=== PATIENT | male | born 1965 | race Caucasian/White ===

== ENCOUNTER 2024-05-16 12:55 | Inpatient (IN) | payer BC, SELFPAY ==
[2024-05-16] VITALS (11 sets, daily range): BP systolic 128–149; BP diastolic 79–91; PULSE 67–89; RESP 16–20; TEMP 36.7–37.1; O2SAT 93–97; BMI 21.6; BMI 21.0
--- NOTE | 2024-05-16 | CRLHL7_ITS ---
For Patients: As a result of the Century Cures Act, medical imaging exams and procedure reports are released immediately into your electronic medical record. You may view this report before your referring provider. If you have questions, please contact your health care provider. INDICATION: RIGHT SIDED WEAKNESS. CODE STROKE TECHNIQUE: CT of the head was performed without IV contrast. COMPARISON: None. FINDINGS: Parenchyma: No acute hemorrhage, infarction, or mass. Moderate confluent periventricular white matter hypoattenuation is nonspecific and is favored to represent chronic small vessel ischemic disease. Ventricles and extra-axial spaces: Mild involutional changes. Visualized paranasal sinuses: Moderate mucosal thickening of the bilateral ethmoid and maxillary sinuses. Mastoid air cells: Clear. Bones: No focal abnormality. Additional comment: None. IMPRESSION: No acute hemorrhage or large territory infarct. Findings discussed with Dr. Johnson At 1:29 p.m. on 05/16/2024. Please note that all CT scans at this facility use dose modulation, iterative reconstruction, and/or weight-based dosing when appropriate to reduce radiation dose to as low as reasonably achievable. Dictated by Ruperto Ramon MD @ 05/16/2024 1:29:50 PM (Electronically Signed)
--- NOTE | 2024-05-16 13:10 | ED.GENADULT ---
HPI - General Adult General Chief complaint: Neuro Symptoms/Altered Deficit Stated complaint: dizziness/numbness Time Seen by Provider: 05/16/24 13:04 History of Present Illness HPI narrative: This 58-year-old male comes in reporting feeling off balance since awakening at 6:00 a.m. this morning. He also states that he has right-sided weakness. He reports some difficulty ambulating. He does have diabetes and smokes tobacco. He arrives here with blood sugar at 173 for glucometer spot check. He does not report a headache. He is not on any anticoagulants. Related Data Home Medications ?Medication ?Instructions ?Recorded ?Confirmed glimepiride 3 mg tablet 6 mg PO DAILY 05/16/24 05/16/24 metformin 1,000 mg tablet 1,000 mg PO DAILY 05/16/24 05/16/24 Allergies Allergy/AdvReac Type Severity Reaction Status Date / Time No Known Drug Allergies Allergy Verified 05/16/24 12:59 Review of Systems Status of ROS: Reports: 10 or more systems reviewed and unremarkable except as noted in History and below Narrative: Constitutional: No fevers, no weight gain or loss. Eyes: No discharge. No vision changes. HENT: No congestion, no sore throat, no ear pain. Cardiovascular: No chest pain, no palpitations. Respiratory: No shortness of breath, no wheezes, no cough. Gastrointestinal: No abdominal pain, no vomiting, no diarrhea. Genitourinary: No dysuria, no hematuria. Musculoskeletal: Normal range of motion. Skin: No rashes, no pruritis. Neurological: He reports the dizziness that he clarifies as off balance. Some right-sided weakness especially in the right upper extremity. Endo/Heme/Allergies: No bruising or bleeding. No polydipsia. Pysch: no suicidality, no anxiety, no insomnia. All other systems reviewed and are negative. PFSH PFSH Social History Smoking Status: Current every day smoker What tobacco products do you use: cigarettes Smoking packs per day: 2 Smoking cigarettes per day: 40.0 How often do you have a drink containing alcohol: 2-3 times a week AUDIT-C Alcohol total score: 3 Non-prescribed substance use: denies use Exam Narrative: Exam Narrative: Constitutional: Well-developed, well-nourished, no acute distress. HEENT: Normocephalic, atraumatic. Neck: Normal range of motion. Nontender. Supple. Heart: Regular. No murmurs. Normal rate. Intact distal pulses. Lungs: Clear to auscultation. No chest discomfort. No wheezes, rhonchi, or rales. Abdomen: Normal bowel sounds. Nontender. No rebound tenderness. Genitalia: Deferred. Back: No midline tenderness. Normal range of motion. Extremities: Normal range of motion. No injury. Skin: Intact. No rash. Warm. No erythema or pallor. Neurologic: No altered sensation. Alert and oriented. No facial asymmetry. Tongue is midline. No pronator drift. 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 Able to raise each leg from the bed. He has trouble using his right hand to do [id number] test but can do so normally with his left hand. Psychiatric: No suicidality. No anxiety or depression. No insomnia. Nursing notes and vitals signs are reviewed. Const: Vital Signs, click to edit/add: Vital Signs - 24 hr 05/16/24 13:17 05/16/24 14:06 05/16/24 14:16 Temperature 98.0 F Pulse Rate 82 Pulse Rate [Pulse Oximeter] 86 Respiratory Rate 16 16 20 Blood Pressure 142/91 H 147/79 H Blood Pressure [Ri ght Upper Arm] 149/83 H Pulse Oximetry 96 96 Oxygen Delivery Me thod Room Air Room Air Room Air 05/16/24 14:31 05/16/24 14:47 Temperature Pulse Rate 71 Pulse Rate [Pulse Oximeter] Respiratory Rate 16 20 Blood Pressure 148/86 H 143/83 H Blood Pressure [Ri ght Upper Arm] Pulse Oximetry 97 97 Oxygen Delivery Me thod Room Air Course Vital Signs Vital signs: Initial Vital Signs Temperature 98.0 F 05/16/24 13:17 Temperature Source Temporal Artery Scan 05/16/24 13:17 Pulse Rate 86 05/16/24 13:17 Pulse Rhythm Regular 05/16/24 13:17 Pulse Strength 3+ Normal 05/16/24 13:17 Respiratory Rate 16 05/16/24 13:17 Blood Pressure 149/83 H 05/16/24 13:17 Blood Pressure Mean 105 05/16/24 13:17 Blood Pressure Position Sitting 05/16/24 13:17 Pulse Oximetry 96 05/16/24 13:17 Oxygen Delivery Method Room Air 05/16/24 13:17 Vital Signs Temperature 98.0 F 05/16/24 13:17 Pulse Rate 86 05/16/24 13:17 Respiratory Rate 16 05/16/24 13:17 Blood Pressure 149/83 H 05/16/24 13:17 Pulse Oximetry 96 05/16/24 13:17 Oxygen Delivery Method Room Air 05/16/24 13:17 Temperature 98.0 F 05/16/24 13:17 Pulse Rate 71 05/16/24 14:47 Respiratory Rate 20 05/16/24 14:47 Blood Pressure 143/83 H 05/16/24 14:47 Pulse Oximetry 97 05/16/24 14:47 Oxygen Delivery Method Room Air 05/16/24 14:31 Medications Administered Medications: Discontinued Medications Generic Name Dose Route Start Last Admin Trade Name Zahra PRN Reason Stop Dose Admin Aspirin 324 mg 05/16/24 14:21 05/16/24 14:29 Aspirin 81 Mg Tab.Chew PO 05/16/24 14:22 324 mg ONCE ONE Administration Clopidogrel Bisulfate 75 mg 05/16/24 14:21 05/16/24 14:30 Clopidogrel 75 Mg Tablet PO 05/16/24 14:22 75 mg ONCE ONE Administration Medical Decision Making MDM Narrative Medical decision making narrative: This patient comes in reporting off-balance and right upper extremity dysfunction upon awakening this morning at 6:00 a.m.. His last known well was last evening prior to going to bed. He does have risk factors for stroke including diabetes and smoking. His neurologic exam was normal except for [id number] was difficulty in using his right hand. A stroke code was called soon after the patient arrived and I was able to get in to see him immediately. He had a CT scan and CT angiogram of his head and neck followed by MRI of his head. Dr. Zee branch was consulted in the Stroke Neuro department and did evaluate him using tele stroke. He recommended aspirin 325 mg daily along with Plavix 75 mg and Lipitor 40 mg daily. The patient does have evidence of a small left basal ganglia stroke. I spoke with the hospitalist on-call who will arrange for admission. I did hear that there was recommendation also to have a echocardiogram done. Lab Data Labs: Lab Results 05/16/24 05/16/24 Range/Units 13:08 13:20 WBC 6.02 (4.50-11.00) K/uL RBC 5.19 (4.30-5.90) m/uL Hgb 15.3 (13.5-17.5) gm/dL Hct 45.5 (37.0-53.0) % MCV 88 (80-100) fL MCH 30 (26-34) pg MCHC 34 (32-36) gm/dL RDW Coeff of Kaya 13.0 (11.5-15.5) % Plt Count 155 (140-440) K/uL Neut % (Auto) 61.0 (42.0-72.0) % Lymph % (Auto) 30.7 (20-44) % Mcculloch % (Auto) 5.6 (0.0-11.0) % Eos % (Auto) 2.0 (0.0-7.0) % Baso % (Auto) 0.5 (0.0-3.0) % Neut # (Auto) 3.67 (1.7-7.0) K/uL Lymph # (Auto) 1.85 (0.90-2.90) K/uL Mcculloch # (Auto) 0.30 (0.00-0.90) K/UL Eos # (Auto) 0.12 (0.00-0.50) K/uL Baso # (Auto) 0.03 (0.00-0.30) K/uL Abs Immat Gran (auto) 0.01 (0.00-0.30) K/uL Imm/Tot Granulo (auto) 0.2 % Sodium 138 (135-149) mmol/L Potassium 4.0 (3.6-5.1) mmol/L Chloride 102 (96-114) mmol/L Carbon Dioxide 28 (20-32) mmol/L Anion Gap 8 (7-15) mEq/L BUN 20 (7-30) mg/dL Creatinine 1.0 (0.5-1.5) mg/dL Estimated Creat Clear 69.55 Estimated GFR 86 ml/min Glucose 151 H (60-115) mg/dL Calcium 8.9 (8.4-10.6) mg/dL POC Glucose 173 H (60-115) mg/dl Imaging Data MRI - head: Radiologist's impression: . Small acute left basal ganglia infarct. 2. Moderate chronic ischemic microvascular disease. ECG Data Attestation: I personally reviewed and interpreted this ECG as follows: Interpretation: Normal sinus rhythm. Rate is 77 beats per minute. There are no ST or T-wave abnormalities. Discharge Plan Discharge Clinical Impression: Cerebrovascular accident Patient Disposition: Admitted As Observation Condition: Unchanged Prescriptions: No Action glimepiride 3 mg tablet 6 mg PO DAILY metformin 1,000 mg tablet 1,000 mg PO DAILY
--- NOTE | 2024-05-16 13:14 | CRLHL7_ITS ---
For Patients: As a result of the Century Cures Act, medical imaging exams and procedure reports are released immediately into your electronic medical record. You may view this report before your referring provider. If you have questions, please contact your health care provider. Indication: Off balance. Weakness. Technique: Multiplanar, multisequence MRI of the brain was performed without intravenous contrast. Comparison: CT head 05/16/2024. Findings: The corpus callosum, pituitary gland clivus appear intact. Mild degenerative change visualized upper cervical spine. There is an 8 mm focus of restricted diffusion within the left basal ganglia (series 5, image 37). Faint corresponding T2 FLAIR hyperintensity. The ventricles are proportionate to the cerebral sulci. The 4th ventricle appears midline. The basal cisterns appear patent. No abnormal extra-axial fluid collection identified. Mild parenchymal volume loss. Moderate scattered T2 FLAIR hyperintense foci within the subcortical and periventricular white matter, favored to represent chronic ischemic microvascular disease. There is no intracranial mass, abnormal mass-effect or midline shift identified. Major intracranial vascular flow voids appear grossly intact. Both globes are preserved. Mild paranasal sinus mucosal disease. Impression: 1. Small acute left basal ganglia infarct. 2. Moderate chronic ischemic microvascular disease. Dictated by Mendoza Arnett MD @ 05/16/2024 2:33:00 PM (Electronically Signed)
--- NOTE | 2024-05-16 13:14 | CRLHL7_ITS ---
For Patients: As a result of the Century Cures Act, medical imaging exams and procedure reports are released immediately into your electronic medical record. You may view this report before your referring provider. If you have questions, please contact your health care provider. DATE: 05/16/2024 CLINICAL HISTORY: Patient with focal neurological deficits. TECHNIQUE: Standard helical CT image acquisition through the intracranial circulation following intravenous administration of contrast material with bolus tracking. 2D and 3D MIP images for post-processing were performed and interpreted on an independent workstation and 3D images were permanently archived. COMPARISON: CT same day. FINDINGS: There is no cerebral aneurysm or large vessel occlusion. The right internal carotid artery is normal. The right middle cerebral artery and its branches are normal. The right anterior cerebral artery and its branches are normal. The left internal carotid artery is normal. The left middle cerebral artery and its branches are normal. The left anterior cerebral artery and its branches are normal. The anterior communicating artery is well visualized and appears normal. The right vertebral artery and PICA are normal. The left vertebral artery and PICA are normal. The vertebral arteries are codominant. The basilar artery is patent and appears normal. The right posterior cerebral artery is normal. The left posterior cerebral artery is normal. The visualized venous structures are patent. IMPRESSION: Patent proximal intracranial vasculature without intracranial aneurysms. Please note that all CT scans at this facility use dose modulation, iterative reconstruction, and/or weight-based dosing when appropriate to reduce radiation dose to as low as reasonably achievable. Dictated by Emre Aaron MD @ 05/17/2024 6:51:15 AM (Electronically Signed)
--- NOTE | 2024-05-16 13:14 | CRLHL7_ITS ---
For Patients: As a result of the Century Cures Act, medical imaging exams and procedure reports are released immediately into your electronic medical record. You may view this report before your referring provider. If you have questions, please contact your health care provider. DATE: 05/16/2024 CLINICAL HISTORY: Patient with focal neurological deficits. TECHNIQUE: Standard helical CT image acquisition of the neck up to the skull base after bolus intravenous contrast enhancement. 2D and 3D MIP images for post-processing were performed and interpreted on an independent workstation and 3D images were permanently archived. COMPARISON: CT same day. FINDINGS: The origins of the great vessels from the aortic arch are patent. The origin of the right vertebral artery demonstrates moderate narrowing. The origin of the left vertebral artery is patent. The common carotid arteries are patent. There is plaque without stenosis at the origin of the right internal carotid artery. There is no stenosis at the origin of the left internal carotid artery. The rest of the cervical segments of the internal carotid arteries are patent up to the skull base. The vertebral arteries are codominant. The cervical segments of the vertebral arteries are patent up to the skull base. The visualized lung apices are unremarkable. The thyroid gland is unremarkable. The soft tissues of the neck are unremarkable. There are degenerative changes in the cervical spine. IMPRESSION: Patent cervical vasculature. Please note that all CT scans at this facility use dose modulation, iterative reconstruction, and/or weight-based dosing when appropriate to reduce radiation dose to as low as reasonably achievable. Dictated by Emre Aaron MD @ 05/17/2024 6:48:50 AM (Electronically Signed)
[2024-05-16 13:30] LABS: Basophils Absolute Auto 0.03 K/uL (0.00-0.30); Basophils Percent Auto 0.5 % (0.0-3.0); Eosinophils Absolute Auto 0.12 K/uL (0.00-0.50); Hematocrit 45.5 % (37.0-53.0); Hemoglobin* 15.3 gm/dL (13.5-17.5); Immature Granulocytes Abs Auto 0.01 K/uL (0.00-0.30); Immature Granulocytes Pct Auto 0.2 %; Lymphocytes Absolute Auto 1.85 K/uL (0.90-2.90); Lymphocytes Percent Auto 30.7 % (20-44); Mean Corpuscular HGB Conc 34 gm/dL (32-36); Mean Corpuscular Hemoglobin 30 pg (26-34); Mean Corpuscular Volume 88 fL (80-100); Monocytes Percent Auto 5.6 % (0.0-11.0); Neutrophils Absolute Auto 3.67 K/uL (1.7-7.0); Platelet Count* 155 K/uL (140-440); Red Blood Count 5.19 m/uL (4.30-5.90); White Blood Count* 6.02 K/uL (4.50-11.00)
[2024-05-16 13:31] LABS: Glucose, Point-of-Care* 173 mg/dl (60-115)
[2024-05-16 13:33] LABS: Slide Review Reflex No
[2024-05-16 13:47] LABS: Chloride* 102 mmol/L (96-114)
[2024-05-16 13:48] LABS: Sodium* 138 mmol/L (135-149)
[2024-05-16 13:50] LABS: Blood Urea Nitrogen* 20 mg/dL (7-30); Est. Creatinine Clearance* 69.55; Estimated Glomerular Filt Rate 86 ml/min
[2024-05-16 13:51] LABS: Anion Gap 8 mEq/L (7-15); Calcium* 8.9 mg/dL (8.4-10.6); Carbon Dioxide* 28 mmol/L (20-32); Glucose* 151 mg/dL (60-115)
[2024-05-16] MEDS: ASPIRIN 81 MG TAB.CHEW 324 MG PO (14:29)
[2024-05-16] MEDS: CLOPIDOGREL 75 MG TABLET PO (14:30)
[2024-05-16 15:13] LABS: PCR FLU A Negative PCR FLU A (Negative); PCR FLU B Negative PCR FLU B (Negative); PCR RSV Negative PCR RSV (Negative); SARS PCR* Negative SARS-CoV-2 (Negative)
[2024-05-16] MEDS: ATORVASTATIN CALCIUM 40 MG TABLET PO (15:28)
--- NOTE | 2024-05-16 15:42 | PM.IMHP1 ---
Assessment and Plan Assessment and plan (1) Cerebrovascular accident: Problem comment: -tiny L internal capsule ischemic stroke, no hemorrhage or mass effect - likely due to small-vessel disease - DAPT - statin therapy, f/u A1C, TSH, Lipid panel - monitor BP, BG closely - OT/PT to see - consider acute rehab vs intensive outpatient rehab - Secondary prevention is higher than most with poor insight into disease. Status: Acute (2) Type 2 diabetes mellitus: Problem comment: - metformin; glimepiride - A1C pending - It appears he is intermittently compliant - some of the issue is he only home in [place] on weekends. Status: Acute (3) Tobacco dependence due to cigarettes: Problem comment: - 1 pack per day- declined any supplement during hospitalization. - no recreational drugs - no alcohol Status: Acute (4) URI (upper respiratory infection): Problem comment: -viral swab negative -CXR P -observe and treat without sudafed/afrin. 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 He has been having symptoms of a head cold for a couple of days and thought when he woke about 5-6 am this morning his cold was getting worse b/c he felt unsteady getting out of his truck. He also noted his right hand/forearm felt numb/tingling and he had trouble using his phone. He brushed off the symptoms at first; ate lunch and was prepping for a long haul to [place] but felt uneasy about driving all that way with how he was feeling; he asked a colleague for a ride to the ED. He specifically denies trouble with eating, speech, headaches, blurry vision. ER COURSE: Upon arrival to the ED - He had trouble using the pen in his right hand and a stroke code was initiated. Ultimately, last known well was outside of lytic therapy. He underwent lab analysis and monitoring. Ultimately, his brain mri showed: Impression: 1. Small acute left basal ganglia infarct. 2. Moderate chronic ischemic microvascular disease TeleNeuro, Dr. Lr, evaluated him and his recommendations are below: - Admit to inpatient. - Isotonic IV fluids as needed. - Aspirin 325 mg in the ED followed by 75mg daily indefinitely - Plavix 75mg daily x 3 weeks and then stop - start Lipitor 40mg daily - Permissive hypertension - treat SBP > 220 or DBP > 120. - Maintain euglycemia and euthermia. - Monitor for clinical change and cardiac arrhythmia. - DVT prophylaxis. - Swallow evaluation prior to oral intake. - Therapies to evaluate and recommend treatment. - PM&R consultation. - Imaging evaluation to include:?none. - Cardiac evaluation to include:?telemetry, TTE wo Bubble. - Lipid panel, HbA1c. CODE STATUS: FULL CODE EMERGENCY CONTACT PLAN: [facility] To [facility] Partner Cell I've updated the PFSH, medications and allergies in the Expanse tabs. INVESTIGATIONS: LABS/MICRO/ECG/IMAGING -unremarkable CBC, BMP. Glucose 151. -I added liver function, TSH, A1C that are pending at time of dictation. -I reviewed CT, CTA and MRI reports as well as the TeleNeuro result. -ECG shows NSR without ischemia; dynamic changes. -last seen by primary care in Dec 2022. @ [facility]. -A1C then was 7.7 -Total cholesterol was 97, LDL 52, HDL 32 -weight was 61.3kg, 110/66 BP REVIEW OF SYSTEMS: 12-point ROS completed with patient and negative unless otherwise stated in HPI or below. PHYSICAL EXAM: CONSTITUTIONAL: unkept; poor dentition (poor fitting dentures). thin. awake, alert, making jokes. GENERAL: thin and small framed, in no respiratory distress. VITAL SIGNS: see record. HEENT: Sclerae are anicteric. No petechiae. CARDIAC: rhythm is regular. There is no S3 or rub. No harsh murmurs. Extremities show trace edema with symmetrical pulses. PULM: good air entry with no wheeze. NEURO: A/O x3. Speech is fluent. No aphasia. EOMI. No facial droop. tongue midline. minimal strength deficit in the RUE. Mild drift noted in RUE. two point discrimination intact. FTN mostly intact and improved from ER eval according to patient. No cerebellar signs. SKIN: No rashes, petechiae, concerning changes PSYCHIATRIC: Euthymic. ADMIT TO MEDSURG: FLOOR CARE DVT: Lovenox, DAPT GI: PO intake Time spent: Today I spent 75 minutes seeing the patient, discussing the patient with ER staff, reviewing Expanse and EPIC notes/diagnostics, discussing the care plan with our care time that includes social work, PT/OT, pharmacy, RT, assisted and documenting my impressions and plan in the medical record. MEDICAL NECESSITY FOR HOSPITALIZATION Anticipated midnights in the hospital: 2 Admitting diagnosis: Acute CVA Risk of morbidity and mortality: Moderate Acuity is characterized as high and reflected in: acute extension of stroke, need for close monitoring of blood pressure, blood sugar. This patient will require hospital services as outlined in the assessment and plan in order to stabilize and be safely discharged to a lower level of care. Because of the risk and acuity as described above, this patient cannot be managed at a lower level of care. LENGTH OF STAY: 2 IP ? Anticipated LOS>2 midnights due to acuity of clinical presentation requiring inpatient level of care [facility] Medical History (Updated 05/16/24 @ 17:14 by Alena Greenwood MD) Cerebrovascular accident ?I63.9 - Cerebral infarction, unspecified (ICD-10) Tobacco dependence due to cigarettes ?F17.210 - Nicotine dependence, cigarettes, uncomplicated (ICD-10) Type 2 diabetes mellitus ?E11.9 - Type 2 diabetes mellitus without complications (ICD-10) Surgical History (Updated 05/16/24 @ 15:45 by Alena Greenwood MD) History of hernia repair ?Z98.890 - Other specified postprocedural states (ICD-10) ?Z87.19 - Personal history of other diseases of the digestive system (ICD-10) Social History Smoking Status: Current every day smoker What tobacco products do you use: cigarettes Smoking packs per day: 2 Smoking cigarettes per day: 40.0 How often do you have a drink containing alcohol: 2-3 times a week AUDIT-C Alcohol total score: 3 Non-prescribed substance use: denies use Meds Home Medications and Allergies Home Medications ?Medication ?Instructions ?Recorded ?Confirmed ?Type glimepiride 3 mg tablet 6 mg PO DAILY 05/16/24 05/16/24 History metformin 1,000 mg tablet 1,000 mg PO DAILY 05/16/24 05/16/24 History Allergies Allergy/AdvReac Type Severity Reaction Status Date / Time No Known Drug Allergies Allergy Verified 05/16/24 12:59 Exam Const: Vital Signs, click to edit/add: Vital Signs - 24 hr 05/16/24 13:17 05/16/24 14:06 05/16/24 14:16 Temperature 98.0 F Pulse Rate 82 Pulse Rate [Pulse Oximeter] 86 Respiratory Rate 16 16 20 Blood Pressure 142/91 H 147/79 H Blood Pressure [Ri ght Upper Arm] 149/83 H Pulse Oximetry 96 96 Oxygen Delivery Me thod Room Air Room Air Room Air 05/16/24 14:31 05/16/24 14:47 05/16/24 15:02 Temperature Pulse Rate 71 73 Pulse Rate [Pulse Oximeter] Respiratory Rate 16 20 16 Blood Pressure 148/86 H 143/83 H 142/82 H Blood Pressure [Ri ght Upper Arm] Pulse Oximetry 97 97 97 Oxygen Delivery Me thod Room Air Hospitalist - H&P: Result Labs Labs: Short CBC 05/16/24 Range/Units 13:20 WBC 6.02 (4.50-11.00) K/uL Hgb 15.3 (13.5-17.5) gm/dL Hct 45.5 (37.0-53.0) % Plt Count 155 (140-440) K/uL BMP 05/16/24 13:20 Sodium 138 Potassium 4.0 Chloride 102 Carbon Dioxide 28 BUN 20 Creatinine 1.0 Glucose 151 H Calcium 8.9
[2024-05-16 16:24] LABS: Albumin* 4.3 g/dL (3.3-5.0)
[2024-05-16 16:26] LABS: Alanine Aminotransferase* 23 U/L (4-50); Aspartate Amino Transferase* 29 U/L (12-35); Bilirubin Direct* 0.4 mg/dL (0.0-0.5); Bilirubin Total* 0.7 mg/dL (0.1-1.5); Total Protein* 7.2 g/dL (6.0-8.3)
[2024-05-16 16:27] LABS: Alkaline Phosphatase* 75 U/L (40-150)
--- NOTE | 2024-05-16 16:51 | CRLHL7_ITS ---
For Patients: As a result of the Century Cures Act, medical imaging exams and procedure reports are released immediately into your electronic medical record. You may view this report before your referring provider. If you have questions, please contact your health care provider. Indication: Cough, head cold, acute stroke Comparison: None available. Technique: PA and lateral views of the chest Findings: There is mild central bronchial thickening without dense consolidation, effusion or pneumothorax. The cardiomediastinal silhouette is within normal limits. There is demonstration of a radiopaque metallic objects projecting over the xiphoid process. Impression: Mild central bronchial thickening without dense consolidation. Dictated by Toni Wolf MD @ 05/16/2024 5:46:02 PM (Electronically Signed)
[2024-05-16 17:45] LABS: Hemoglobin A1C* 7.5 % (0-5.6)
[2024-05-16] MEDS: levoFLOXacin 500 MG TABLET PO (19:16)
--- NOTE | 2024-05-16 19:40 | PC.NURSE ---
Patient up to floor at 1530. Patient pleasant and cooperative. Right side deficits are mild from stroke affecting Left side of brain. BP parameters in place to be higher. Patient on tele NSR. Patient on RA, VSS and afebrile this shift. Patient tolerating a reg heart healthy diet.
[2024-05-16 20:04] LABS: Thyroid Stimulating Hormone* 0.803 uIU/mL (0.270-4.20)
[2024-05-16] MEDS: INSULIN ASPART 100 UNIT/ML SUBCUT (21:17)
[2024-05-16] MEDS: ENOXAPARIN 40 MG/0.4 ML INJ SUBCUT (21:21)
[2024-05-16] MEDS: SODIUM CHLORIDE 0.9 % (FLUSH) 10 ML SYRINGE 5 ML IVF (21:21)
[2024-05-17] VITALS (11 sets, daily range): BP systolic 128–151; BP diastolic 76–87; PULSE 69–86; RESP 16–18; TEMP 36.3–36.8; O2SAT 94–97
--- NOTE | 2024-05-17 00:01 | PC.NURSE ---
End of shift note ([id number]): Patient pleasant, alert and oriented. Ambulated to bathroom with gait belt and assist of one. Very wobbly gait. Denied pain.
[2024-05-17 07:00] LABS: Hematocrit 47.5 % (37.0-53.0); Hemoglobin* 15.8 gm/dL (13.5-17.5); Mean Corpuscular HGB Conc 33 gm/dL (32-36); Mean Corpuscular Hemoglobin 29 pg (26-34); Mean Corpuscular Volume 88 fL (80-100); Platelet Count* 151 K/uL (140-440); Red Blood Count 5.42 m/uL (4.30-5.90); White Blood Count* 5.31 K/uL (4.50-11.00)
[2024-05-17 07:14] LABS: Slide Review Reflex No
[2024-05-17 07:25] LABS: Chloride* 105 mmol/L (96-114); Sodium* 137 mmol/L (135-149)
[2024-05-17 07:28] LABS: Anion Gap 10 mEq/L (7-15); Blood Urea Nitrogen* 21 mg/dL (7-30); Calcium* 8.7 mg/dL (8.4-10.6); Carbon Dioxide* 22 mmol/L (20-32); Cholesterol* 151 mg/dL (90-199); Creatinine* 0.8 mg/dL (0.5-1.5); Est. Creatinine Clearance* 80.64; Estimated Glomerular Filt Rate 101 ml/min; Glucose* 159 mg/dL (60-115); Triglycerides* 124 mg/dL (40-149)
[2024-05-17 07:29] LABS: HDL Cholesterol* 29 mg/dL (>=40); LDL Cholesterol Calculated 97 mg/dL (<100)
[2024-05-17] MEDS: INSULIN ASPART 100 UNIT/ML SUBCUT (07:51)
[2024-05-17] MEDS: GLIMEPIRIDE 4 MG TABLET 6 MG PO (07:51)
[2024-05-17] MEDS: METFORMIN 1,000 MG TABLET 1000 MG PO ×2 (07:51→18:04)
--- NOTE | 2024-05-17 08:06 | CRLHL7_ITS ---
For Patients: As a result of the Century Cures Act, medical imaging exams and procedure reports are released immediately into your electronic medical record. You may view this report before your referring provider. If you have questions, please contact your health care provider. Indication: CVA, worsening symptoms Technique: Multiplanar, multisequence MRI of the brain obtained without contrast. Comparison: MRI brain 05/16/2024 Findings: Slightly increased area of restricted diffusion at the posterior limb of the left internal capsule. No hemorrhagic transformation. No midline shift, hydrocephalus or herniation. Redemonstration of mild-moderate chronic microangiopathic changes with numerous chronic lacunar infarcts thirty bilateral basal ganglia regions. Unremarkable midline structures. Preserved major intracranial arterial flow voids. Normal calvarial marrow signal. Mucosal thickening throughout the ethmoid air cells and inferior maxillary sinuses, without air-fluid level or mastoid effusion. Unremarkable orbits. Impression: 1. Continued evolution of the small acute infarct at the posterior limb of the left internal capsule, slightly larger relative to 05/16/2024. 2. No hemorrhagic transformation. No other significant interval change. Dictated by Marilia Torres MD @ 05/17/2024 9:38:15 AM (Electronically Signed)
[2024-05-17] MEDS: ATORVASTATIN CALCIUM 40 MG TABLET PO (09:42)
[2024-05-17] MEDS: CLOPIDOGREL 75 MG TABLET PO (09:42)
[2024-05-17] MEDS: ASPIRIN 81 MG TABLET EC PO (09:42)
[2024-05-17] MEDS: SODIUM CHLORIDE 0.9 % (FLUSH) 10 ML SYRINGE 5 ML IVF ×2 (09:42→20:32)
[2024-05-17] MEDS: 0.9 % SODIUM CHLORIDE 500 ML 500 ML IV (09:43)
--- NOTE | 2024-05-17 10:01 | PM.IMPN1 ---
Assessment and Plan Assessment and plan (1) Cerebrovascular accident: Problem comment: - L internal capsule ischemic stroke, no hemorrhage or mass effect (worsened on 05/17/24), RUE and speech primarily affected - likely due to small-vessel disease - DAPT, statin therapy, tight BG control - TTE pending 05/17 - OT/PT, speech and stroke neurology following - consider acute rehab vs intensive outpatient rehab Status: Acute (2) Type 2 diabetes mellitus: Problem comment: - metformin; glimepiride (not always compliant with meds at home), SSI here - INCREASING Metformin from 1000mg daily to 1000mg BID - A1C 7.5 Status: Acute (3) Tobacco dependence due to cigarettes: Problem comment: - 1 pack per day- declined any supplement during hospitalization, has patches prn - no recreational drugs - no alcohol Status: Acute (4) URI (upper respiratory infection): Problem comment: - viral swab negative - CXR: mild bronchial thickening, no consolidation - observe and treat without Sudafed/Afrin; prn Mucinex, nasal saline, Tylenol Status: Deleted Plan - per above Subjective Date Seen: 05/17/24 Interval history: John was admitted last night for R sided weakness, ultimately diagnosed with a L internal capsule CVA. This morning, Gautam is unable to move RUE at all, repeat MRI exhibits continued evolution of infarct, no new areas of ischemia, no hemorrhage. Dr. Johnson of [facility] is following. LDL 97, A1C 7.5. Known DM2, on Glimepiride and Metformin daily (not always compliant with these as an outpatient). Currently on ASA, Plavix, Atorvastatin, Metformin (increasing home dose from 1000mg daily to 1000mg BID), and SSI. Therapies following, at this time seems appropriate for acute rehab. Exam Narrative: Exam Narrative: GEN: Alert and oriented, answering questions appropriately HEENT: + R sided facial droop, + dysarthria CV: RRR, No concerning murmurs R: LCTA bilaterally without concerning wheezing Ext: Unable to move RUE at all, able to lift RLE and + plantarflexion of R foot Skin: No concerning skin lesions or rashes on exposed skin Neuro: See above Psych: Appropriate Const: Vital Signs, click to edit/add: Vital Signs - 24 hr 05/16/24 13:17 05/16/24 14:06 05/16/24 14:16 Temperature 98.0 F Pulse Rate 82 Pulse Rate [Left R adial] Pulse Rate [Pulse Oximeter] 86 Respiratory Rate 16 16 20 Blood Pressure 142/91 H 147/79 H Blood Pressure [Le ft Arm] Blood Pressure [Ri ght Upper Arm] 149/83 H Pulse Oximetry 96 96 Oxygen Delivery Me thod Room Air Room Air Room Air 05/16/24 14:31 05/16/24 14:47 05/16/24 15:02 Temperature Pulse Rate 71 73 Pulse Rate [Left R adial] Pulse Rate [Pulse Oximeter] Respiratory Rate 16 20 16 Blood Pressure 148/86 H 143/83 H 142/82 H Blood Pressure [Le ft Arm] Blood Pressure [Ri ght Upper Arm] Pulse Oximetry 97 97 97 Oxygen Delivery Me thod Room Air 05/16/24 15:49 05/16/24 15:50 05/16/24 15:50 Temperature 98.7 F Pulse Rate 67 Pulse Rate [Left R adial] 73 Pulse Rate [Pulse Oximeter] Respiratory Rate 18 18 Blood Pressure Blood Pressure [Le ft Arm] 143/87 H Blood Pressure [Ri ght Upper Arm] Pulse Oximetry 96 96 Oxygen Delivery Me od Room Air Room Air 05/16/24 20:00 05/16/24 23:25 05/16/24 23:40 Temperature 98.2 F 98.1 F Pulse Rate 67 Pulse Rate [Left R adial] 89 77 Pulse Rate [Pulse Oximeter] Respiratory Rate 17 16 Blood Pressure Blood Pressure [Le ft Arm] 143/80 H 128/79 Blood Pressure [Ri ght Upper Arm] Pulse Oximetry 93 97 Oxygen Delivery Me od Room Air Room Air 05/17/24 03:00 05/17/24 07:00 Temperature 98.2 F 98.1 F Pulse Rate Pulse Rate [Left R adial] 69 82 Pulse Rate [Pulse Oximeter] Respiratory Rate 16 18 Blood Pressure Blood Pressure [Le ft Arm] 134/82 151/85 H Blood Pressure [Ri ght Upper Arm] Pulse Oximetry 94 95 Oxygen Delivery Me thod Room Air Room Air Labs Labs: Laboratory Results - last 24 hr 05/16/24 05/16/24 05/16/24 13:08 13:20 13:57 WBC 6.02 RBC 5.19 Hgb 15.3 Hct 45.5 MCV 88 MCH 30 MCHC 34 RDW Coeff of Kaya 13.0 Plt Count 155 Neut % (Auto) 61.0 Lymph % (Auto) 30.7 [place] % (Auto) 5.6 Eos % (Auto) 2.0 Baso % (Auto) 0.5 Neut # (Auto) 3.67 Lymph # (Auto) 1.85 [place] # (Auto) 0.30 Eos # (Auto) 0.12 Baso # (Auto) 0.03 Abs Immat Gran (auto) 0.01 Imm/Tot Granulo (auto) 0.2 Sodium 138 Potassium 4.0 Chloride 102 Carbon Dioxide 28 Anion Gap 8 BUN 20 Creatinine 1.0 Estimated Creat Clear 69.55 Estimated GFR 86 Glucose 151 H Hemoglobin A1c 7.5 H Calcium 8.9 Total Bilirubin 0.7 Direct Bilirubin 0.4 AST 29 ALT 23 Alkaline Phosphatase 75 Total Protein 7.2 Albumin 4.3 Triglycerides Cholesterol LDL Cholesterol, Calc HDL Cholesterol TSH 0.803 SARS-CoV-2 (PCR) Negative SARS-CoV-2 Influenza Type A (PCR) Negative PCR FLU A Influenza Type B (PCR) Negative PCR FLU B RSV (PCR) Negative PCR RSV Lab Acknowledgement POC Glucose 173 H 05/16/24 05/17/24 15:55 06:34 WBC 5.31 RBC 5.42 Hgb 15.8 Hct 47.5 MCV 88 MCH 29 MCHC 33 RDW Coeff of Kaya Plt Count 151 Neut % (Auto) Lymph % (Auto) [place] % (Auto) Eos % (Auto) Baso % (Auto) Neut # (Auto) Lymph # (Auto) [place] # (Auto) Eos # (Auto) Baso # (Auto) Abs Immat Gran (auto) Imm/Tot Granulo (auto) Sodium 137 Potassium 4.0 Chloride 105 Carbon Dioxide 22 Anion Gap 10 BUN 21 Creatinine 0.8 Estimated Creat Clear 80.64 Estimated GFR 101 Glucose 159 H Hemoglobin A1c Calcium 8.7 Total Bilirubin Direct Bilirubin AST ALT Alkaline Phosphatase Total Protein Albumin Triglycerides 124 Cholesterol 151 LDL Cholesterol, Calc 97 HDL Cholesterol 29 L TSH SARS-CoV-2 (PCR) Influenza Type A (PCR) Influenza Type B (PCR) RSV (PCR) Lab Acknowledgement Test Added POC Glucose
--- NOTE | 2024-05-17 10:12 | NUTR.NU ---
RDN with diet education related to current diet order of Heart Healthy diet. Not appropriate at this time to provide diet ed. Patient to be assessed by therapies and may require acute rehab. RDN will continue to monitor and attempt to provide diet education if appropriate at later date.
[2024-05-17] MEDS: 0.9 % SODIUM CHLORIDE 1000 ml 1,000 ML 125 ML IV (14:08)
--- NOTE | 2024-05-17 16:04 | PC.SOCIAL ---
Discharge planning: Met with pt regarding d/c plan. Pt agrees with recommendation for acute rehab stay. Provided pt with written list of the acute care facilities in [place]. Pt states he would rather have one located in [place]. Called the two facilities located in [place] with the following result. 1. [facility] ([place]) [phone]. Spoke with rider ticket worker who stated there are no expected beds available this week, but referral can be faxed. 2. [facility] - [phone] and spoke with Kevon in admissions. Kevon stated there may be availability on Wednesday and requested information be faxed. Faxed referral packet to Kevon at fax#[phone]. Awaiting call back with decision on admit. clothing worker to follow up as needed.
[2024-05-17] MEDS: levoFLOXacin 500 MG TABLET PO (18:04)
--- NOTE | 2024-05-17 18:45 | PC.NURSE ---
End of shift [id number]: Pt AxOx4. Upon initial assessment of VS, head-to-toe, and neuro, Pt reported worsening symptoms. Pt stated My speech feels more slurred and I cannot even move my arm. Food Preparation Worker reported to MD, repeat MRI performed. Pt was able to lift arm just slightly two times during the day. Pt is able to feel sharp, soft, and cold to the R arm. Neuro consult, echo, and therapies completed today. Pt was agitated throughout the shift, ad writer used therapeutic communication to bring support to the Pt. Pt is impulsive when ambulating. Bed alarm and chair alarm set in place at all times. Pt is heavily unsteady on feet. A2 GB Uriah Walker. Pt up in chair for meals. Refused lunch, sliding scale Aspart held per MD orders. 2 IVs started during the shift. IV to the L AC removed due to infiltration. NS running @ 125 ml/hr. Denies pain, headache, dizziness, and CP during shift. Continent of the bladder and bowels. Pt appears resting in bed watching television with call light in reach.
[2024-05-17] MEDS: ENOXAPARIN 40 MG/0.4 ML INJ SUBCUT (20:31)
[2024-05-18] VITALS (12 sets, daily range): BP systolic 120–150; BP diastolic 41–83; PULSE 73–89; RESP 16–18; TEMP 36.4–36.8; O2SAT 95–98
[2024-05-18] MEDS: 0.9 % SODIUM CHLORIDE 1000 ml 1,000 ML 125 ML IV (01:23)
[2024-05-18] MEDS: ALBUMIN HUMAN 25% 25 GM/100 ML VIAL IVPB (03:13)
--- NOTE | 2024-05-18 06:43 | PC.NURSE ---
23-: pleasant and cooperative. R arm flaccid. Critical BG 44 around 0200, peanut butter toast, crackers & juice given, BG came up to 105. Tele doc adjusted Glimepiride dose. SBP 120 around 0200, updated MD, received order for Albumin, SBP came up to 135.
[2024-05-18] MEDS: ASPIRIN 81 MG TABLET EC PO (09:24)
[2024-05-18] MEDS: CLOPIDOGREL 75 MG TABLET PO (09:24)
[2024-05-18] MEDS: ATORVASTATIN CALCIUM 40 MG TABLET PO (09:24)
[2024-05-18] MEDS: METFORMIN 1,000 MG TABLET 1000 MG PO ×2 (09:24→17:31)
[2024-05-18] MEDS: SODIUM CHLORIDE 0.9 % (FLUSH) 10 ML SYRINGE 5 ML IVF ×2 (09:25→21:03)
--- NOTE | 2024-05-18 09:48 | PM.IMPN1 ---
Assessment and Plan Assessment and plan (1) Cerebrovascular accident: Problem comment: - L internal capsule ischemic stroke, no hemorrhage or mass effect (worsened on 05/17/24), RUE and speech primarily affected - likely due to small-vessel disease - DAPT, statin therapy, tight BG control - OT/PT, speech and stroke neurology following, acute rehab recommended, awaiting placement - TTE reassuring with results below: Final Impressions: 1. Normal LV size, normal wall thickness, estimated EF of 60 - 65%. 2. No significant valve disease detected. 3. No shunt seen across the interatrial septum. Status: Acute (2) Type 2 diabetes mellitus: Problem comment: - as an outpatient on metformin and glimepiride (not always compliant with meds at home) - INCREASING Metformin from 1000mg daily to 1000mg BID, stopping glimepiride 05/18 given hypoglycemia - A1C 7.5 Status: Acute (3) Tobacco dependence due to cigarettes: Problem comment: - 1 pack per day- declined any supplement during hospitalization, has patches prn - no recreational drugs - no alcohol Status: Acute (4) URI (upper respiratory infection): Problem comment: - viral swab negative - CXR: mild bronchial thickening, no consolidation - observe and treat without Sudafed/Afrin; prn Mucinex, nasal saline, Tylenol Status: Deleted Plan - per above, awaiting acute rehab placement Subjective Date Seen: 05/18/24 Interval history: John was admitted to the hospital on 05/16/24 for R sided weakness, ultimately diagnosed with a L internal capsule CVA. Unable to move RUE at all, also having dysarthria. Therapies following, as well as Dr. Johnson from [facility]. On ASA 81mg daily, Plavix (75mg for 21 days, initiated 05/16), and Atorvastatin 40mg HS as new therapies. LDL 97, A1C 7.5. Known DM2, on Glimepiride and Metformin as an outpatient (not always compliant with these). Therapies following and recommending acute rehab, SW assisting. Overnight, John had a BG of 44. Notes a long history of lower BGs when he takes his Glimepiride at home, amenable to stopping this as we have also increased his Metformin from 1000mg daily to 1000mg BID. Continues to have mild URI symptoms. No hypoxia or fevers, no other concerns for hospitalist team. Exam Narrative: Exam Narrative: GEN: Alert and oriented, sitting up in bed and speaking in full sentences HEENT: Mild right-sided facial droop, + dysarthria CV: RRR, No concerning murmurs R: LCTA bilaterally without concerning wheezing, no coughing during our visit Ext: wwp, no concerning edema Skin: No concerning skin lesions or rashes on exposed skin Neuro: Unable to move right upper extremity, normal manager marketing communications strength left upper extremity Psych: Appropriate Const: Vital Signs, click to edit/add: Vital Signs - 24 hr 05/17/24 11:00 05/17/24 12:00 05/17/24 15:00 Temperature 97.9 F 98.1 F Pulse Rate Pulse Rate [Left R adial] 86 82 78 Pulse Rate [Pulse Oximeter] Respiratory Rate 16 16 Blood Pressure [Le ft Arm] 136/76 146/80 H Pulse Oximetry 96 [facility] 05/17/24 16:00 05/17/24 16:55 05/17/24 19:00 Temperature 97.4 F L Pulse Rate 78 Pulse Rate [Left R adial] 78 74 Pulse Rate [Pulse Oximeter] Respiratory Rate 16 Blood Pressure [Le ft Arm] 141/87 H Pulse Oximetry 97 [facility] 05/17/24 20:00 05/17/24 23:00 05/17/24 23:00 Temperature 97.7 F Pulse Rate Pulse Rate [Left R adial] 86 Pulse Rate [Pulse Oximeter] 80 80 Respiratory Rate 16 16 Blood Pressure [Le ft Arm] 128/82 Pulse Oximetry 96 [facility] 05/18/24 00:26 05/18/24 03:00 05/18/24 06:00 Temperature 97.9 F Pulse Rate 77 Pulse Rate [Left R adial] Pulse Rate [Pulse Oximeter] 89 73 Respiratory Rate 16 Blood Pressure [Le ft Arm] 120/78 135/41 L Pulse Oximetry 98 [facility] 05/18/24 07:00 Temperature Pulse Rate 77 Pulse Rate [Left R adial] Pulse Rate [Pulse Oximeter] Respiratory Rate Blood Pressure [Le ft Arm] Pulse Oximetry [facility]
--- NOTE | 2024-05-18 10:43 | NUTR.NU ---
RDN with MD consult for diabetes education. Current diet is heart healthy. Patient admitted for CVA, now with RUE weakness and speech impairment. Medical history includes but not limited to history of other CVAs, Tobacco dependence due to cigarettes, and Type 2 diabetes mellitus. Current A1C 7.5%. Current weight 129lb 9.6oz; height 5ft 7in; BMI 20.3 kg/m2. No weight history to assess. Patient reports his weight has been stable recently. Current diet is heart healthy. Meal intakes since admit have been adequate at 75%+. RDN visited with patient whom reports a good appetite. He reports being sick a few times before being hospitalized with the flu and covid. RDN offered diet education, patient declined at this time but did want education materials to share with Lady, designated caregiver, whom is not present at the time of visit. Plan is for patient to discharge to acute rehab facility. Patient had no questions or concerns at this time. RDN's contact information was provided and patient was encouraged to call with questions. RDN will continue to monitor.
--- NOTE | 2024-05-18 13:20 | PC.SOCIAL ---
Discharge planning: Called [facility] rehab [phone] regarding decision on referral sent yesterday. Intake states they have not finished the assessment yet but will have a decision on admit by the end of the day. They anticipate having bed availability tomorrow. film processing utility worker to follow up as needed.
[2024-05-18] MEDS: guaiFENesin 600 MG TAB.ER.12H 1200 MG PO (17:30)
[2024-05-18] MEDS: levoFLOXacin 500 MG TABLET PO (17:31)
--- NOTE | 2024-05-18 18:59 | PC.NURSE ---
End of shift [id number]: Pt AxOx4. R arm flaccid. Pt is able to feel sharp, soft, and cold to the R arm. RLE is moderately weak. Up with therapies this afternoon. Pt is impulsive when ambulating. Bed alarm and chair alarm set in place at all times. A2 GB Uriah Walker. Pt up in chair for meals. Refused lunch, sliding scale Aspart held per MD orders. SL to both IVs of CHRISTINAE. at bedside throughout the majority of the day. Pt appears resting in bed watching television with call light in reach.
[2024-05-18] MEDS: ENOXAPARIN 40 MG/0.4 ML INJ SUBCUT (21:03)
[2024-05-19] VITALS (11 sets, daily range): BP systolic 121–153; BP diastolic 67–84; PULSE 73–88; RESP 16–19; TEMP 36.4–36.8; O2SAT 94–98
--- NOTE | 2024-05-19 06:05 | PC.NURSE ---
: A x 2 with gb and modified walker, very unsteady trying to get to BR quickly for a BM, did have an incont episode en route, pt became upset & frustrated with current situation, allowed time for pt to cool off, commercial real estate underwriter listened & offered therapeutic communication, pt calmed down. Right arm remains flaccid. BG 49 @ HS, snacks given- ice cream & juice, BG came up to 102.
[2024-05-19 06:41] LABS: Basophils Absolute Auto 0.03 K/uL (0.00-0.30); Basophils Percent Auto 0.5 % (0.0-3.0); Eosinophils Absolute Auto 0.11 K/uL (0.00-0.50); Eosinophils Percent Auto 1.7 % (0.0-7.0); Hematocrit 44.5 % (37.0-53.0); Hemoglobin* 15.1 gm/dL (13.5-17.5); Immature Granulocytes Abs Auto 0.01 K/uL (0.00-0.30); Immature Granulocytes Pct Auto 0.2 %; Lymphocytes Absolute Auto 1.89 K/uL (0.90-2.90); Lymphocytes Percent Auto 29.6 % (20-44); Mean Corpuscular HGB Conc 34 gm/dL (32-36); Mean Corpuscular Hemoglobin 29 pg (26-34); Mean Corpuscular Volume 87 fL (80-100); Monocytes Percent Auto 5.8 % (0.0-11.0); Neutrophils Absolute Auto 3.97 K/uL (1.7-7.0); Neutrophils Percent Auto 62.2 % (42.0-72.0); Platelet Count* 192 K/uL (140-440); RDW Coefficient of Variation % 12.9 % (11.5-15.5); Red Blood Count 5.14 m/uL (4.30-5.90); White Blood Count* 6.38 K/uL (4.50-11.00)
[2024-05-19 06:47] LABS: Chloride* 105 mmol/L (96-114); Potassium* 3.8 mmol/L (3.6-5.1); Slide Review Reflex No; Sodium* 139 mmol/L (135-149)
[2024-05-19 06:50] LABS: Anion Gap 10 mEq/L (7-15); Blood Urea Nitrogen* 16 mg/dL (7-30); Carbon Dioxide* 24 mmol/L (20-32); Creatinine* 0.8 mg/dL (0.5-1.5); Est. Creatinine Clearance* 80.39; Estimated Glomerular Filt Rate 101 ml/min
[2024-05-19 06:51] LABS: Calcium* 8.9 mg/dL (8.4-10.6); Glucose* 112 mg/dL (60-115)
[2024-05-19] MEDS: ASPIRIN 81 MG TABLET EC PO (08:52)
[2024-05-19] MEDS: FLUTICASONE PROPIONATE NASAL 1 SPRAY NOSTRIL-B ×2 (08:52→21:07)
[2024-05-19] MEDS: METFORMIN 1,000 MG TABLET 500 MG PO (08:52)
[2024-05-19] MEDS: ATORVASTATIN CALCIUM 40 MG TABLET PO (08:52)
[2024-05-19] MEDS: CLOPIDOGREL 75 MG TABLET PO (08:52)
[2024-05-19] MEDS: guaiFENesin 600 MG TAB.ER.12H 1200 MG PO ×2 (08:52→21:00)
[2024-05-19] MEDS: SODIUM CHLORIDE 0.9 % (FLUSH) 10 ML SYRINGE 5 ML IVF ×3 (08:53→21:02)
--- NOTE | 2024-05-19 11:59 | PC.SOCIAL ---
Addendum entered by TERRANCE Wright 05/19/24 15:41: Discharge planning: Received call from Chelsi at [facility] stating pt has been accepted clinically for admit to their unit and they have requested prior authorization from pt's insurance. Once prior authorization is obtained by [facility], they can accept pt. They are expecting to receive prior auth by tomorrow morning and have requested ambulance transport be arranged to leave the hospital at 11:30. On 05/20/24, RN to call [facility] [phone] and confirm they are able to accept pt prior to sending him. Acute care facility is located on 5th floor of [address] [place] [address]. Met with pt who is pleased with this plan. [facility] to call pt or partner to answer questions about their program and what to bring. project crew worker attempted to contact partner at number on face sheet, but received message that voicemail has not been set up. Pt states he will update his partner. Charge nurse aware of plan and follow up needed. Original Note: Discharge planning: Called [facility] and spoke with Chelsi who states they are still assessing pt for admit to their facility. They will discuss discharge date when assessment is completed. Faxed requested updated information to Chelsi and awaiting call back with decision on admit and schedule for admit. project crew worker to follow up as needed.
--- NOTE | 2024-05-19 14:59 | PM.IMPN1 ---
Assessment and Plan Assessment and plan (1) Cerebrovascular accident: Problem comment: - L internal capsule ischemic stroke, no hemorrhage or mass effect (worsened on 05/17/24), RUE and speech primarily affected - likely due to small-vessel disease - DAPT (21 days of Plavix, lifelong ASA), statin therapy, tight BG control with Metformin + SSI - OT/PT, speech and stroke neurology following, acute rehab recommended, awaiting placement - TTE reassuring with results below: Final Impressions: 1. Normal LV size, normal wall thickness, estimated EF of 60 - 65%. 2. No significant valve disease detected. 3. No shunt seen across the interatrial septum. Status: Acute (2) Type 2 diabetes mellitus: Problem comment: - as an outpatient on metformin and glimepiride (not always compliant with meds at home) - INCREASING Metformin from 1000mg daily to 1000mg BID, stopping glimepiride 05/18 given hypoglycemia - A1C 7.5 Status: Acute (3) Tobacco dependence due to cigarettes: Problem comment: - 1 pack per day- declined any supplement during hospitalization, has patches prn - no recreational drugs - no alcohol Status: Acute (4) URI (upper respiratory infection): Problem comment: - viral swab negative - CXR: mild bronchial thickening, no consolidation - received 2 doses of Levaquin without relief - scheduled Flonase, Guaifenesin, prn Tylenol Status: Deleted Plan - awaiting acute rehab placement Subjective Date Seen: 05/19/24 Interval history: John was admitted to the hospital on 05/16/24 for R sided weakness, ultimately diagnosed with a L internal capsule CVA. Unable to move RUE at all, also having dysarthria. Therapies following, as well as Dr. Johnson from [facility]. On ASA 81mg daily, Plavix (75mg for 21 days, initiated 05/16), and Atorvastatin 40mg HS as new therapies. LDL 97, A1C 7.5. Known DM2, on Glimepiride and Metformin as an outpatient (not always compliant with these). Therapies following and recommending acute rehab, SW assisting. Overnight, John had a BG of 44. Notes a long history of lower BGs when he takes his Glimepiride at home, amenable to stopping this as we have also increased his Metformin from 1000mg daily to 1000mg BID. Blood sugars range from 49-279, on sliding scale insulin as well. Continues to have URI symptoms, hasn't been using prn Flonase or Guaifenesin. Exam Narrative: Exam Narrative: GEN: Alert and oriented, sitting up in bed and speaking in full sentences HEENT: Mild right-sided facial droop, + dysarthria, speech understandable CV: RRR, No concerning murmurs R: LCTA bilaterally without concerning wheezing Ext: wwp, no concerning edema Skin: No concerning skin lesions or rashes on exposed skin Neuro: Unable to move right upper extremity, normal catch basin cleaner strength left upper extremity Psych: Appropriate, no agitation or cognitive impairment Const: Vital Signs, click to edit/add: Vital Signs - 24 hr 05/18/24 15:00 05/18/24 15:00 05/18/24 16:00 Temperature 98.3 F Pulse Rate 79 Pulse Rate [Pulse Oximeter] 80 80 Respiratory Rate 16 Blood Pressure [Le ft Arm] 129/83 Pulse Oximetry [facility] 05/18/24 20:30 05/18/24 23:00 05/18/24 23:38 Temperature 97.6 F Pulse Rate 75 Pulse Rate [Pulse Oximeter] 89 Respiratory Rate 18 18 Blood Pressure [Le ft Arm] 150/80 H Pulse Oximetry 96 [facility] 05/19/24 00:00 05/19/24 00:00 05/19/24 04:00 Temperature 97.9 F 97.6 F Pulse Rate Pulse Rate [Pulse Oximeter] 79 76 79 Respiratory Rate 16 16 Blood Pressure [Le ft Arm] 151/82 H 130/78 Pulse Oximetry 96 98 [facility] Room Air 05/19/24 07:39 05/19/24 07:50 05/19/24 11:12 Temperature 98.3 F Pulse Rate 80 Pulse Rate [Pulse Oximeter] 79 88 Respiratory Rate 16 16 Blood Pressure [Le ft Arm] 143/83 H 153/84 H Pulse Oximetry 98 94 [facility] Room Air 05/19/24 11:19 Temperature Pulse Rate Pulse Rate [Pulse Oximeter] 88 Respiratory Rate 16 Blood Pressure [Le ft Arm] 153/84 H Pulse Oximetry 94 [facility] Labs Labs: Laboratory Results - last 24 hr 05/19/24 06:00 WBC 6.38 RBC 5.14 Hgb 15.1 Hct 44.5 MCV 87 MCH 29 MCHC 34 RDW Coeff of Kaya 12.9 Plt Count 192 Neut % (Auto) 62.2 Lymph % (Auto) 29.6 [place] % (Auto) 5.8 Eos % (Auto) 1.7 Baso % (Auto) 0.5 Neut # (Auto) 3.97 Lymph # (Auto) 1.89 [place] # (Auto) 0.40 Eos # (Auto) 0.11 Baso # (Auto) 0.03 Abs Immat Gran (auto) 0.01 Imm/Tot Granulo (auto) 0.2 Sodium 139 Potassium 3.8 Chloride 105 Carbon Dioxide 24 Anion Gap 10 BUN 16 Creatinine 0.8 Estimated Creat Clear 80.39 Estimated GFR 101 Glucose 112 Calcium 8.9
[2024-05-19] MEDS: SODIUM CHLORIDE NASAL SPRAY 1 SPRAY NOSTRIL-B (16:30)
--- NOTE | 2024-05-19 18:07 | PC.NURSE ---
Pt pleasant. Impulsive with transfers, however cooperative and follows commands. VSS. Denies pain. Tolerates oral intake. Pt refused 1730 insulin and 1800 insulin. BG stable at 151.
[2024-05-19] MEDS: ENOXAPARIN 40 MG/0.4 ML INJ SUBCUT (21:01)
[2024-05-20] VITALS (8 sets, daily range): BP systolic 127–153; BP diastolic 66–83; PULSE 67–100; RESP 15–16; TEMP 36.6–36.9; O2SAT 95–97
--- NOTE | 2024-05-20 06:56 | PC.NURSE ---
Shift note ([id number]): Patient pleasant and alert. Tolerated moderately thickened liquids. Ambulated with walker, gait belt and assist of one. Denied pain. ?IV in right antecubital d/c due to redness at site. IV in right wrist intact and patent. ?
--- NOTE | 2024-05-20 06:57 | PC.NURSE ---
Shift note ([id number]): Patient pleasant, alert and oriented. Two?assist with walker and gait belt. Blood sugars 106 and 110. No insulin given per SS parameters. Denied pain.??
[2024-05-20] MEDS: METFORMIN 1,000 MG TABLET 500 MG PO ×2 (07:48→17:20)
[2024-05-20] MEDS: guaiFENesin 600 MG TAB.ER.12H 1200 MG PO ×2 (07:48→20:43)
[2024-05-20] MEDS: ASPIRIN 81 MG TABLET EC PO (09:42)
[2024-05-20] MEDS: CLOPIDOGREL 75 MG TABLET PO (09:42)
[2024-05-20] MEDS: FLUTICASONE PROPIONATE NASAL 1 SPRAY NOSTRIL-B ×2 (09:43→20:43)
[2024-05-20] MEDS: SODIUM CHLORIDE 0.9 % (FLUSH) 10 ML SYRINGE 5 ML IVF ×2 (09:43→20:44)
[2024-05-20] MEDS: ATORVASTATIN CALCIUM 40 MG TABLET PO (09:43)
[2024-05-20] MEDS: DOXYCYCLINE HYCLATE 100 MG PO ×2 (11:00→20:43)
--- NOTE | 2024-05-20 13:40 | PM.IMPN1 ---
Assessment and Plan Assessment and plan (1) Cerebrovascular accident: Problem comment: - L internal capsule ischemic stroke, no hemorrhage or mass effect (worsened on 05/17/24), RUE and speech primarily affected - likely due to small-vessel disease - DAPT (21 days of Plavix, lifelong ASA), statin therapy, tight BG control with Metformin + SSI - OT/PT, speech and stroke neurology following, acute rehab recommended, awaiting placement - TTE reassuring with results below: Final Impressions: 1. Normal LV size, normal wall thickness, estimated EF of 60 - 65%. 2. No significant valve disease detected. 3. No shunt seen across the interatrial septum. Status: Acute (2) Type 2 diabetes mellitus: Problem comment: - as an outpatient on metformin and glimepiride (not always compliant with meds at home) - A1C of 7.5, wide range of BGs here (doesn't always eat much at meals, hard to schedule SSI) 44-->279 - changes: INCREASED Metformin from 1000mg daily to 1000mg BID (then reduced to 500mg BID given hypoglycemia), stopped glimepiride 05/18 given hypoglycemia - would benefit from continued diabetic education Status: Acute (3) Tobacco dependence due to cigarettes: Problem comment: - 1 pack per day- declined any supplement during hospitalization, has patches prn - no recreational drugs - no alcohol Status: Acute (4) URI (upper respiratory infection): Problem comment: - viral swab negative - CXR: mild bronchial thickening, no consolidation - received 2 doses of Levaquin without relief - scheduled Flonase, Guaifenesin, prn Tylenol, added Doxycycline 05/20 given sinus mucosal thickening on admission head CT Status: Deleted Plan - per above, partner updated bedside Subjective Date Seen: 05/20/24 Interval history: John was admitted to the hospital on 05/16/24 for R sided weakness, ultimately diagnosed with a L internal capsule CVA. Unable to move RUE at all, also having dysarthria. Therapies following, as well as Dr. Johnson from [facility]. On ASA 81mg daily, Plavix (75mg for 21 days, initiated 05/16), and Atorvastatin 40mg HS as new therapies. LDL 97, A1C 7.5. Known DM2, on Glimepiride and Metformin as an outpatient (was not always compliant with these prior to admission). Therapies following and recommending acute rehab, SW assisting. Overnight, John had a BG of 44. Notes a long history of lower BGs when he takes his Glimepiride at home, amenable to stopping this as we have also increased his Metformin from 1000mg daily to 1000mg BID. Blood sugars range from 49-279, on sliding scale insulin as well. Continues to have URI symptoms (primarily sinus pressure and intermittent cough), minimal relief with Flonase/Mucinex (also treated with 2 days of Levaquin). Negative COVID/FLU/RSV on admission, + Noted to have mucosal thickening of ethmoid and maxillary sinuses on head CT in ER. Has been accepted to [facility] for admission tomorrow. 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 Psych: Appropriate, no agitation or cognitive impairment Const: Vital Signs, click to edit/add: Vital Signs - 24 hr 05/19/24 15:00 05/19/24 15:39 05/19/24 19:00 Temperature 98.3 F 98.3 F Pulse Rate [Pulse Oximeter] 75 75 73 Respiratory Rate 16 16 19 Blood Pressure [Le ft Arm] 142/74 H 140/77 H Pulse Oximetry 96 96 Oxygen Delivery Me thod Room Air Room Air 05/19/24 23:00 05/19/24 23:41 05/20/24 02:25 Temperature 98.0 F 98.0 F Pulse Rate [Pulse Oximeter] 74 74 67 Respiratory Rate 18 15 Blood Pressure [Le ft Arm] 121/67 127/83 Pulse Oximetry 96 95 Oxygen Delivery Me thod Room Air Room Air 05/20/24 04:00 05/20/24 07:45 05/20/24 11:00 Temperature 98.4 F 98.5 F Pulse Rate [Pulse Oximeter] 67 85 100 Respiratory Rate 16 16 Blood Pressure [Le ft Arm] 134/76 133/77 Pulse Oximetry 97 97 Oxygen Delivery Nv thod Room Air Room Air
--- NOTE | 2024-05-20 18:49 | PC.NURSE ---
The patient is pleasant and alert and orientated, slurred, soft spoken speech. R arm flaccid and RLE weak. No reports of pain. Moves well Ax1 w/ platform walker. Productive cough intermittently throughout the day. The patient is going to rehab tomorrow via non emergent EMS. Appetite is reassuring. Call light within reach. Kathi FARNSWORTH BSN
[2024-05-20] MEDS: ENOXAPARIN 40 MG/0.4 ML INJ SUBCUT (20:43)
[2024-05-21 03:00] VITALS: BP 135/92; PULSE 87; RESP 16; TEMP 36.6; O2SAT 95
[2024-05-21 04:00] VITALS: PULSE 87
--- NOTE | 2024-05-21 06:33 | PC.NURSE ---
Shift note: Patient has been in bed throughout the shift. Alert and oriented. He continue to have right sided weakness with flaccid right upper extremity. Takes pill whole with water. Patient is educated about the pending transfer to a rehab facility and looking forward to that.
--- NOTE | 2024-05-21 07:07 | PM.DS1 ---
DS: Providers Provider Date Seen: 05/21/24 Date of admission: 05/16/24 15:49 Primary care physician: Not a Local Provider Admitting Clinician: Gasper Jung MD Consults: PT, OT, SW, FINANCIAL ANALYSIS MANAGER Attending Physician on discharge: Katie Ferrer MD Date of Discharge: 05/21/24 DS: Diagnosis Discharge Diagnosis (1) Cerebrovascular accident: Status: Acute Problem details: - L internal capsule ischemic stroke, no hemorrhage or mass effect (worsened on 05/17/24), RUE and speech primarily affected - likely due to small-vessel disease - DAPT (21 days of Plavix, lifelong ASA), statin therapy, tight BG control with Metformin + SSI - OT/PT, speech and stroke neurology following, acute rehab recommended, awaiting placement - TTE reassuring with results below: Final Impressions: 1. Normal LV size, normal wall thickness, estimated EF of 60 - 65%. 2. No significant valve disease detected. 3. No shunt seen across the interatrial septum. (2) Type 2 diabetes mellitus: Status: Acute Problem details: - as an outpatient on metformin and glimepiride (not always compliant with meds at home) - A1C of 7.5, wide range of BGs here (doesn't always eat much at meals, hard to schedule SSI) 44-->279 - changes: INCREASED Metformin from 1000mg daily to 1000mg BID (then reduced to 500mg BID given hypoglycemia), stopped glimepiride 05/18 given hypoglycemia - would benefit from continued diabetic education (3) Tobacco dependence due to cigarettes: Status: Acute Problem details: - 1 pack per day- declined any supplement during hospitalization, has patches prn - no recreational drugs - no alcohol (4) Sinusitis: Status: Acute Problem details: -presented with sinus fullness, chest congestion, achiness -viral swab negative, CXR shows mild central bronchial thickening without dense consolidation, mild sinus disease on head CT -treated with Levaquin x2 days without much relief -transitioned to Doxycycline 05/20, also treating symptoms with APAP, Guaifenesin, Flonase -amenable to adding Nicotine patch on 05/21 as withdrawal may be contributing to symptoms DS: Summary Hospital Course Hospital Course: John was admitted to the hospital on 05/16/24 for R sided weakness, ultimately diagnosed with a L internal capsule CVA. Unable to move RUE at all, also having dysarthria. Followed by Dr. Johnson from [facility] during stay. Continued home dose of ASA 81mg daily; added Plavix (75mg for 21 days, initiated 05/16), and Atorvastatin 40mg HS as new therapies. TTE obtained 05/16 and reassuring (EF 60-65%, normal valves, no shunt). LDL 97, A1C 7.5. Known DM2, on Glimepiride and Metformin as an outpatient (was not always compliant with these prior to admission). Notes a long history of lower BGs when he takes his Glimepiride at home; wide ranges of BG here (40s --> high 200s). Medication changes: d/c'd Glimepiride, changed Metformin to 500mg BID. Received some SSI, but not always eating at regular intervals. Would benefit from intense diabetic education upon d/c. Noted URI symptoms (primarily sinus pressure and intermittent cough) during stay (started 2-3 days prior to admission). Negative COVID/FLU/RSV on admission, + mucosal thickening of ethmoid and maxillary sinuses on head CT in ER. Reassuring vital signs and exam, no hypoxia, afebrile. Discharging on Doxycycline, Flonase, Guaifenesin. Therapies followed during stay, Acute rehab recommended. Accepted to [facility] for admission, medically appropriate for d/c 05/21/24. Time Spent with Patient Time attestation: Total time spent providing and/or coordinating discharge services: Time spent: Greater than 30 minutes Exam Narrative: Exam Narrative: GEN: Alert and oriented, sitting in bedside chair HEENT: + right-sided facial droop, + dysarthria. EOMIs bilaterally, no scleral icterus CV: RRR, No concerning murmurs R: LCTA bilaterally without concerning wheezing, air movement adequate. Ext: wwp, no concerning edema Skin: No concerning skin lesions or rashes on exposed skin Neuro: No movement of right upper extremity, weakness of right lower extremity Psych: Appropriate Const: Vital Signs, click to edit/add: Vital Signs - 24 hr 05/20/24 07:45 05/20/24 11:00 05/20/24 15:00 Temperature 98.4 F 98.5 F 98.5 F Pulse Rate [Pulse Oximeter] 85 100 90 Respiratory Rate 16 16 16 Blood Pressure [Le ft Arm] 134/76 133/77 131/66 Pulse Oximetry 97 97 95 Oxygen Delivery Me thod Room Air Room Air Room Air 05/20/24 15:00 05/20/24 19:00 05/20/24 20:49 Temperature 97.9 F Pulse Rate [Pulse Oximeter] 90 77 72 Respiratory Rate 16 16 Blood Pressure [Le ft Arm] 153/76 H Pulse Oximetry 95 Oxygen Delivery Me thod Room Air 05/20/24 22:49 05/20/24 22:49 05/21/24 03:00 Temperature 98.1 F 97.9 F Pulse Rate [Pulse Oximeter] 72 72 87 Respiratory Rate 16 16 16 Blood Pressure [Le ft Arm] 136/80 135/92 H Pulse Oximetry 97 95 Oxygen Delivery Me thod Room Air Room Air 05/21/24 04:00 Temperature Pulse Rate [Pulse Oximeter] 87 Respiratory Rate Blood Pressure [Le ft Arm] Pulse Oximetry Oxygen Delivery Me thod Discharge Plan Discharge Disposition: [facility] Date of Admission: 05/16/24 15:49 Attending Provider on Discharge: Katie Ferrer Primary Care Provider: Provider,Not a Local Anticipated Discharge Date/Time: 05/20/24 10:00 Discharge Medications: New atorvastatin 40 mg Tablet 40 mg PO QAM Qty: 30 0RF acetaminophen 325 mg Tablet 650 mg PO Q4H PRNQty: 30 0RF aspirin 81 mg Tablet,Delayed Release (Dr/Ec) 81 mg PO DAILY Qty: 30 0RF clopidogrel 75 mg Tablet 75 mg PO DAILY Qty: 18 0RF fluticasone propionate 50 mcg/actuation Hermann,Suspension 1 spray intranasal BID Qty: 16 0RF guaifenesin [Mucinex] 600 mg Tablet Extended Release 12hr 1,200 mg PO BID Qty: 30 0RF metformin 500 mg tablet 500 mg PO BIDWMEAL Qty: 60 2RF Discontinued glimepiride 3 mg tablet 6 mg PO DAILY metformin 1,000 mg tablet 1,000 mg PO DAILY Discharge Orders: Discharge Order (Routine); Ordered 05/21/24 Ordered By: Katie Ferrer Additional Instructions: Medication changes: We've added Atorvastatin (cholesterol medication) to your medications, you take this at night. You are on 81mg of ASA DAILY for life. You will take 75mg of Plavix for a total of 21 days (last dose on 06/06) WITH your aspirin. STOP Glimepiride given low blood sugars; take Metformin 500mg twice/day with meals. For your cold: COVID test was negative, Chest XRay also negative, lungs have been clear, + sinus infection on CT. We've been treating with Doxycycline (antibiotic), Flonase nasal spray, and Mucinex. For future stroke prevention: It would be EXCELLENT for your overall health to quit smoking! It would be a good idea to work with a systems integration advisor/water plumber to help plan your meals, as you have wide variations in your blood sugars. Activity Detail: per therapies (CVA) Discharge Diet: Diabetic Follow Up Appointments: Provider,Not a Local [Primary Care Provider] - Forms: [facility] Info Instructions Admit to: Acute Rehab Discharge Potential: Good Length of Stay: 30-90 days Can use facility standing orders?: Yes Code Status: Full Code Rehab Potential: Good Therapy: Physical Therapy, Occupational Therapy and Speech Therapy Oxygen: No Urinary Catheter: No Glucose Checks: BID and prn Orders are good >30 days: Yes Signature: Katie Ferrer MD
[2024-05-21 08:00] VITALS: BP 124/86; PULSE 102; RESP 18; O2SAT 94
[2024-05-21] MEDS: NICOTINE 7 MG PATCH 1 PATCH TRANSDERMA (08:13)
[2024-05-21] MEDS: METFORMIN 1,000 MG TABLET 500 MG PO (08:13)
[2024-05-21] MEDS: DOXYCYCLINE HYCLATE 100 MG PO (08:13)
[2024-05-21] MEDS: CLOPIDOGREL 75 MG TABLET PO (08:13)
[2024-05-21] MEDS: ASPIRIN 81 MG TABLET EC PO (08:13)
[2024-05-21] MEDS: ATORVASTATIN CALCIUM 40 MG TABLET PO (08:14)
[2024-05-21] MEDS: guaiFENesin 600 MG TAB.ER.12H 1200 MG PO (08:14)
--- NOTE | 2024-05-21 09:05 | PC.NURSE ---
Report [facility] to [facility]... all questions were answered. Platform walker w/ Ax1, the patient is quite impulsive and will be insistent on doing things himself. No reports of pain. Slurred/garbled speech from infarct. RUE is flaccid, and RLE is moderately weak and ataxia is present with both extremities. The patient reports feeling ill for awhile now does not think it is getting better, scheduled Mucinex and doxy were given per MD orders. Uses urinal at the bedside, BM reported by the patient this morning. Glasses and lower dentures that the patient does not have in. L forearm is patent. Kathi FARNSWORTH BSN
--- NOTE | 2024-05-21 12:25 | PC.NURSE ---
The patient discharged via EMS this AM... transferred to rehab facility with all of his personal belongings. All questions were answered. Kathi FARNSWORTH BSN
== END 2024-05-21 11:37 | DRG 45 ==
LOC: ED 15:12 → MEDSURG 15:37
PROVIDERS: Family Medicine; Admitting Provider Family Medicine; Emergency Provider Emergency Medicine Emergency Medical Services; Visit Provider Family Medicine
DX: I63.9 Cerebral infarction, unspecified (principal); G81.91 Hemiplegia, unspecified affecting right dominant side; R47.1 Dysarthria and anarthria; J20.9 Acute bronchitis, unspecified; E11.649 Type 2 diabetes mellitus with hypoglycemia without coma; Z79.84 Long term (current) use of oral hypoglycemic drugs; F17.210 Nicotine dependence, cigarettes, uncomplicated; J01.80 Other acute sinusitis
CPT/HCPCS: 36415; 70450; 70496; 70498; 70551; 71046; 80048; 80061; 80076; 82947; 82962; 83036; 84443; 85025; 85027; 87631; 92507; 92522; 92523; 92526; 92610; 93005; 93306; 97110; 97112; 97116; 97162; 97165; 97530; 97535; 99284; 99291; A9270; J1650; J7030; P9047; Q9967; S4990

== ENCOUNTER 2024-05-21 11:31 | Outpatient (CLI) | payer BC, SELFPAY | END 2024-05-21 11:32 | disposition home or self-care (01) | LOC: AMB 05-22 15:56 | PROVIDERS: Visit Provider Family Medicine | DX: I63.9 Cerebral infarction, unspecified (principal); E11.9 Type 2 diabetes mellitus without complications | CPT/HCPCS: A0425; A0429 ==